=== PATIENT | female | born 1940 ===

== ENCOUNTER 2025-04-02 09:59 | Outpatient (REF) | payer SELFPAY ==
--- OUTSIDE RECORDS SUMMARY | 2025-04-02 11:01 | XMS_ITS | Encounter Summary ---
Author Organization [employer] Address [address] [place] [address] Care Team Providers Care Geology Associate Name Role Phone Unavailable Primary Care Provider Unavailabl e Encounter Details Date Type Department Care Team (Latest Contact Info) Description 03/10/2019 Abstract C CONVERSIONS Dental, Provider, DDS Social History Tobacco Use Types Packs/Day Years Used Date Smoking Tobacco: Never Assessed Comments Unknown Sex and Gender Information Value Date Recorded Sex Assigned at Female 07/06/2022 10:22 AM EDT Legal Sex Female 10:22 AM EDT Gender Identity Female 07/06/2022 10:22 AM EDT Sexual Orientation Straight 07/06/2022 10 :22 AM EDT documented as of this encounter Plan of Treatment Not on file documented as of this encounter Visit Diagnoses Not on filedocumented in this encounter
== END 2025-04-02 10:00 | disposition home or self-care (01) ==
LOC: HO.WMHL 09:59
PROVIDERS: Visit Provider Nurse Practitioner Acute Care
DX: Z13.89 Encounter for screening for other disorder (principal)
CPT/HCPCS: 36415; 82040; 84134